=== PATIENT | male | born 1960 | race Caucasian/White ===

== ENCOUNTER 2017-10-28 09:07 | Emergency (ER) | payer MEDICAID, OTHER ==
[~2017-10-28] VITALS: Ht 172.7 cm; Wt 118.3 kg
[2017-10-28 09:13] VITALS: BP 165/95
== END 2017-10-28 10:58 | disposition home or self-care (01) ==
LOC: ED 09:41
DX: S72.324A Nondisplaced transverse fracture of shaft of right femur, initial encounter for closed fracture (principal); X58.XXXA Exposure to other specified factors, initial encounter; Y93.89 Activity, other specified; Y92.828 Other wilderness area as the place of occurrence of the external cause; Y99.8 Other external cause status
CPT/HCPCS: 99284